=== PATIENT | female | born 2000 | race Asian ===

== ENCOUNTER 2025-04-10 08:29 | Outpatient (CLI) | payer MEDICAID ==
[2025-04-10 09:22] LABS: LEUKOCYTE ESTERASE ,URINE NEGATIVE (Neg); NITRITES, URINE NEGATIVE (Neg); OCCULT BLOOD,URINE NEGATIVE (Neg)
[2025-04-10 09:23] LABS: UA COLLECTION TYPE NON-SPECIFIED
[2025-04-10 09:26] LABS: MEAN PLATELET VOLUME 7.1 FL (7.4-10.4); RED CELL DISTRIBUTION WIDTH 12.7 % (11.5-14.5)
[2025-04-11 06:12] LABS: HBSAG SCREEN Negative (Negative)
[2025-04-11 07:24] LABS: VITAMIN D, 25-HYDROXY 41.1 ng/mL (30.0-100.0)
== END 2025-04-10 23:59 | disposition home or self-care (01) ==
LOC: LAB 08:29
PROVIDERS: ATTEND Doula
DX: Z34.81 Encounter for supervision of other normal pregnancy, first trimester (principal); E55.9 Vitamin D deficiency, unspecified; Z3A.00 Weeks of gestation of pregnancy not specified
CPT/HCPCS: 36415; 81003; 82306; 83036; 85025; 86592; 86762; 86885; 86900; 86901; 87340